=== PATIENT | male | born 1950 | race Caucasian/White ===

== ENCOUNTER 2018-08-16 16:54 | Emergency (ER) | payer BC ==
[~2018-08-16] VITALS: Ht 165.1 cm; Wt 61.0 kg
[2018-08-16 17:05] VITALS: BP 137/100
[2018-08-16] MEDS ORDERED: LISI10TA5 PO (17:10)
== END 2018-08-16 22:07 | disposition left against medical advice (07) ==
LOC: ER 16:54
DX: F41.9 Anxiety disorder, unspecified (principal); Z53.21 Procedure and treatment not carried out due to patient leaving prior to being seen by health care provider